=== PATIENT | female | born 1960 | race Caucasian/White ===

== ENCOUNTER 2018-12-10 04:51 | Inpatient (IN) ==
--- NOTE | 2018-11-12 15:36 | PAT Medication Instructions ---
Medication Instructions Date of Service November 12, 2018 Home Medications aspirin 81 mg PO DAILY PRN biotin 10,000 mcg PO QAM levothyroxine 100 mcg PO QAM multivitamin 1 cap PO QAM naproxen [Naprosyn] 500 - 1,000 mg PO BID PRN vitamin B complex 1 cap PO QAM Continue as directed aspirin 81 mg PO DAILY PRN (if needed) ASK your surgeon for instructions naproxen [Naprosyn] 500 - 1,000 mg PO BID PRN STOP taking 2 weeks before surgery (or as soon as possible if surgery is within 2 weeks) biotin 10,000 mcg PO QAM DO NOT take the morning of surgery multivitamin 1 cap PO QAM vitamin B complex 1 cap PO QAM Take morning of surgery With a small sip of water, OTHERWISE NOTHING TO EAT OR DRINK AFTER MIDNIGHT: levothyroxine 100 mcg PO QAM Other Notes If you have any questions please call us at [phone] or [phone] or [phone] or [phone]
--- NOTE | 2018-11-15 09:17 | Anesthesiology Consultation ---
Date of Service November 15, 2018 Assessment & Plan (1) Encounter for pre-operative examination: Chart Review Chart Review: Acceptable Risk for Surgery and Patient seen in Pre Admission Testing Teaching & Discussion Pre-Anesthesia Teaching/Discussion Notes: Instructed NPO after midnight before surgery,except medications with 15 cc of water. Medication instructions provided according to the PAT guidelines. History Surgery Operation Date: 12/10/18 10:40 Proposed Procedures p Left Total Hip Replacement - Truman Rizzo MD Height/Weight Height: 5 ft 5 in Weight: 66.2 kg Allergies Allergy/AdvReac Type Severity Reaction Status Date / Time adhesive Allergy Mild REDNESS, Verified 11/15/18 09:48 SORENESS Medications Home Medications Medication Instructions Recorded Confirmed Last Taken aspirin 81 mg PO DAILY PRN 11/02/18 11/02/18 Unknown biotin 10,000 mcg PO QAM 11/02/18 11/02/18 Unknown levothyroxine 100 mcg PO QAM 11/02/18 11/02/18 Unknown multivitamin 1 cap PO QAM 11/02/18 11/02/18 Unknown naproxen [Naprosyn] 500 - 1,000 mg PO BID PRN 11/02/18 11/02/18 Unknown vitamin B complex 1 cap PO QAM 11/02/18 11/02/18 Unknown Past Medical History Medical History Hypothyroidism Osteoarthritis Racing heart beat CHRONIC X 8+ YEARS S/P "NEGATIVE" CARDIAC WORKUP INCLUDING MULTIPLE 2 WEEK HOLTER MONITORS PER PATIENT Exercise / Class Metabolic Activity II 4-5 Yardwork/Stairs/Walk up hill Past Surgical History Surgical History History of appendectomy Hx of exploratory laparotomy RESIDUAL APPENDIX TISSUE REMOVAL YEARS AFTER INITIAL APPE + MELO Past Anesthesia History No Hx of Anesthesia Complications and No Family Hx of Anesthesia Complications History of PONV No Hx of PONV and Hx of Motion Sickness Social History Smoking Status: Former smoker Do You Dip or Chew Tobacco: No Smoking End Date: QUIT 2003 Hx Alcohol Use: No Hx Substance Use: No substance use type: does not use Review of Systems URI symptoms including sinus pressure (per patient, she will notify PCP/surgeon if symptoms persistent/worsening. Patient denies chest pain, shortness of breath, dyspnea on exertion, reflux, cough, wheezing. Physical Exam Vital Signs VITALS BP 145/75 P 61 TEMP 97.9 SP02 97%RA RESP 16 PHYSICAL Full neck and c-spine range of motion. Full TMJ range of motion. TMD 2.5 finger breaths Mallampati Score 3 Dentition: poor dentition, several rotted teeth, upper partial, patient denies any loose teeth Lungs: clear throughout to auscultation Cardiac: regular rate and rhythm, no murmurs noted Spine: normal Carotid arteries: negative bruit Extremities: no edema Testing Laboratory Results 11/15/18 10:03 11/15/18 10:03 PT 10.2 Seconds (9.0-12.0) 11/15/18 10:03 INR 1.0 (0.9-1.1) 11/15/18 10:03 APTT 28.8 Seconds (21.0-31.0) 11/15/18 10:03 Blood Type O Positive 11/15/18 10:03 Antibody Screen NEGATIVE 11/15/18 10:03 Electrocardiogram Date: 11/15/18 SB at 52bpm. PRWP consider anterior [place] vs. lead placement vs. LVH. Chest X-Ray Date: 11/15/18 Findings: + NAD
--- NOTE | 2018-11-15 10:34 | XRay Report ---
XR chest Pre-admission PA/Lat CLINICAL HISTORY: 58 years-old Female presenting with preoperative evaluation. TECHNIQUE: PA and lateral views of the chest were obtained. COMPARISON: None. FINDINGS: Cardiomediastinal silhouette normal. Lungs and pleural spaces clear. Osseous structures normal. Upper abdomen normal. IMPRESSION: 1. No acute cardiopulmonary disease. Electronically signed by: Willian Muñoz M.D. 11/15/2018 10:33 AM
[2018-11-15 10:44] LABS: Basophils # (auto) 0.01 K/uL (0-0.2); Basophils % (auto) 0.1 %; Eosinophils # (auto) 0.08 K/uL (0-0.5); Hematocrit (blood only) 39.2 % (37-47); Hemoglobin 13.3 g/dL (12.0-16.0); Immature Granulocytes # (auto) 0.02 K/uL (0.00-0.02); Immature Granulocytes % (auto) 0.2 %; Lymphocytes # (auto) 2.43 K/uL (1.2-3.4); Lymphocytes % (auto) 29.4 %; Mean Corpuscular Hgb Conc 33.9 g/dL (32-36); Mean Corpuscular Volume 89.5 fL (80-100); Monocytes # (auto) 0.54 K/uL (0.11-0.59); Monocytes % (auto) 6.5 %; Neutrophils # (auto) 5.18 K/uL (1.4-6.5); Neutrophils % (auto) 62.8 %; Platelet Count 309 K/uL (130-400); RDW Coefficient of Variation 13.3 % (11.5-14.5); RDW Standard Deviation 43.9 fL (36.4-46.3); Red Blood Count 4.38 M/uL (4.2-5.4); White Blood Count 8.26 K/uL (4.8-10.8)
[2018-11-15 10:55] LABS: BUN Creatinine Ratio 32.1 (10-20); Calcium 9.1 mg/dl (8.5-10.1); Creatinine Clr Calc Pharmacy 100.3 ml/min; Est GFR (African American) 119.8; Est GFR (Non-African American) 103.4; Potassium 3.9 mmol/L (3.5-5.1)
[2018-11-15 11:03] LABS: Partial Thromboplastin Ratio 1.1; Partial Thromboplastin Time 28.8 Seconds (21.0-31.0); Prothrombin Time 10.2 Seconds (9.0-12.0)
--- NOTE | 2018-12-03 21:06 | History and Physical Report ---
DATE OF ADMISSION: 12/10/2018 CHIEF COMPLAINT: Left hip pain. HISTORY OF PRESENT ILLNESS: The patient is a 58-year-old white female who has had a several year history of gradually increasing left hip pain and discomfort. It started several years ago. No known trauma. She used to be pretty active but this hip pain has really gotten to the point where it really is limiting her activity. She describes groin and thigh pain. She cannot walk any more than a couple blocks. She has difficulty putting her shoes and socks on. She has been through a bunch of different oral medicines without much relief. She would like to proceed with definitive treatment/hip replacement. PAST MEDICAL HISTORY: Significant for: 1. Emphysema/COPD. 2. Hypothyroidism. PAST SURGICAL HISTORY: Includes: 1. Appendectomy. 2. Exploratory surgery for adhesions. ALLERGIES: ADHESIVES. CURRENT MEDICINES: Include: 1. Levothyroxine 100 mcg a day. 2. Naproxen 500 mg twice a day. 3. Biotin. 4. Vitamin D. 5. Centrum Silver. FAMILY HISTORY: Noncontributory. SOCIAL HISTORY: A 58-year-old white female. Lives in [place]. She is . REVIEW OF HISTORY: Negative for diabetes, neurologic problems, vascular problems, bleeding disorders. No chest pain or shortness of breath. No history of DVT or PE. PHYSICAL EXAMINATION: GENERAL: Reveals a pleasant middle-aged female, looks to be in reasonably good health. HEENT: Benign. NECK: Supple. No lymphadenopathy. LUNGS: Clear to auscultation. HEART: Regular rate and rhythm. ABDOMEN: Soft, nontender, nondistended. EXTREMITIES: Grossly neurovascularly intact except as follows: Examination of left hip reveals the patient walks with antalgic gait. Clinically, her leg lengths appear pretty equal. She does have limited hip motion, internally rotates to about neutral. Her pelvis rocks with internal rotation. External rotation is at 30 degrees. No knee effusion. She is neurologically intact. X-RAYS: X-rays of the left hip were reviewed. She has advanced left hip DJD. She has complete loss of her superior joint space. She has osteophytes around the femoral head and acetabulum. Fairly large medial osteophyte. ASSESSMENT: A 58-year-old white female with a several year history of increasing left hip pain and discomfort consistent with advanced degenerative joint disease. She has failed conservative treatment and would like to have her left hip fixed. PLAN: We are going to take her to the operating room and do a left total hip replacement. The risks and benefits of this procedure were explained to the patient including but not limited to DVT, PE, , infection, neurological injury, vascular injury, bleeding problem, pain, limited range of motion, stiffness, failure to relieve her symptoms, incomplete relief of symptoms, need for further surgery in future, fracture, leg length inequality, nerve palsy, need for blood transfusion, etc. The patient understands and desires to proceed. We did talk her about stopping her Naprosyn 10 days preop. She is planning to be discharged home and do outpatient therapy.
[2018-12-10] MEDS ORDERED: FAMOTIDINE 20 MG TAB PO SCH (06:00)
[2018-12-10] MEDS ORDERED: GABAPENTIN 600 MG DOSE PO SCH (06:00)
[2018-12-10] MEDS ORDERED: CEFAZOLIN 2000MG 2,000 MG/15 ML SYR IV SCH (06:00)
[2018-12-10] MEDS ORDERED: METOCLOPRAMIDE HCL 10 MG TABLET PO SCH (06:00)
[2018-12-10] MEDS ORDERED: ACETAMINOPHEN 500 MG TAB PO SCH (06:00)
[2018-12-10] MEDS ORDERED: TRANEXAMIC ACID 1,000 MG **IV Pre-op IV SCH (06:00)
[2018-12-10] MEDS ORDERED: LR 60ML/HR IV SCH (06:00)
[2018-12-10] MEDS ORDERED: LR 500ML BOLUS, THEN 15ML/HR IV SCH (06:00)
[2018-12-10] MEDS ORDERED: SCOPOLAMINE 1.5 MG TDSY TD SCH (06:00)
[2018-12-10] MEDS ORDERED: TRANEXAMIC ACID 1,000 MG **IV Intra-op IV SCH (06:30)
[2018-12-10] MEDS ORDERED: BUPIVACAINE/EPINEPHRINE 0.5% MPF 1:200,000 30 ML VIAL ONE (06:38)
[2018-12-10] MEDS ORDERED: BACITRACIN INJ 50,000 UNIT VIAL ONE (06:38)
--- NOTE | 2018-12-10 06:49 | History & Physical Bridge Note ---
Date of Service December 10, 2018 History & Physical Bridge Note I have examined the patient, reviewed the History & Physical and in the interval since the performance of the History & Physical I have noted the following changes of clinical significance: no changes noted
[2018-12-10] MEDS ORDERED: DiphenhydrAMINE HCL 50 MG/ML VIAL IV PRN (08:01)
[2018-12-10] MEDS ORDERED: NALOXONE HCL 1 MG in SODIUM CHLORIDE 0.9% 1000ML 1,000 ML IV PRN (08:01)
[2018-12-10] MEDS ORDERED: PROMETHAZINE HCL 25 MG in SODIUM CHLORIDE 0.9% 50 ML IV PRN (08:01)
[2018-12-10] MEDS ORDERED: MoRPHine SULFATE PF 1 MG/ML 10 ML AMP/VIAL INT SPINAL ONE (08:01)
[2018-12-10] MEDS ORDERED: NALBUPHINE HCL INJ 10 MG/ML AMP IV PRN (08:01)
[2018-12-10] MEDS ORDERED: LACTATED RINGER'S 500 ML IV PRN (08:01)
[2018-12-10] MEDS ORDERED: NALOXONE HCL 0.08 MG in SYRINGE 1.8 ML IV PRN (08:01)
[2018-12-10] MEDS ORDERED: ePHEDrine sulfate 50 MG/ML AMP IV PRN (08:01)
[2018-12-10] MEDS ORDERED: NALOXONE HCL 0.4 MG/1 ML VIAL/CARP IV PRN ×2 (08:01→09:45)
[2018-12-10] MEDS ORDERED: ONDANSETRON INJ 2 MG/ML 2 ML VIAL IV PRN ×2 (08:01→09:45)
[2018-12-10] MEDS ORDERED: SODIUM CHLORIDE 0.9% 1000ML 1,000 ML IV SCH (08:15)
[2018-12-10] MEDS ORDERED: DC INTRASPINAL MORPHINE SCH (08:15)
[2018-12-10] MEDS ORDERED: NO NARCOTICS OR SEDATIVES SCH (08:15)
--- NOTE | 2018-12-10 08:30 | Post Operative Brief Note ---
Immediate Post Op Note v1 Date of Surgery December 10, 2018 Pre & Post Diagnosis Operation Date: 12/10/18 07:00 Pre-Op Diagnosis: Left Hip Degenerative Joint Disease Post-Op Diagnosis: Left Hip Degenerative Joint Disease Procedure Operation Date: 12/10/18 07:00 Actual Procedures p Left Total Hip Replacement(Left) - Truman Rizzo MD Surgeon Truman Rizzo MD Dinkey Driver Sarah, PAC Estimated Blood Loss 200 Findings Consistent with Post-Op Diagnosis Fluids 1300 cc Specimens Left Femoral Head Drains Piedra Catheter Anesthesia Type Spinal MAC Complications none Disposition Accompanied Patient To Recovery: Yes Disposition: Recovery Room
--- NOTE | 2018-12-10 09:11 | XRay Report ---
SINGLE VIEW PELVIS; SINGLE VIEW LEFT HIP CLINICAL HISTORY: Postoperative examination. FINDINGS: An AP portable view of the hips and pelvis with a crosstable lateral portable view of the l eft hip are obtained. A bipolar left hip arthroplasty is in near-anatomic alignment. 2 cortical lag s crews transfix the acetabular cup. No acute fracture is identified. There are expected postoperative changes overlying the left hip including skin clips, subcutaneous gas, and soft tissue swelling. Join t space of the right hip is maintained. A calcified fibroid and phleboliths are noted in the pelvis. A Piedra catheter is in place. IMPRESSION: Expected postoperative findings status post left hip arthroplasty. No acute fracture is s een. Electronically signed by: Jos Eli M.D. 12/10/2018 9:09 AM
--- NOTE | 2018-12-10 09:35 | Anesthesiology Progress Note ---
Date of Service December 10, 2018 Anesthesia Post Procedure Vital Signs Vital Signs: Temp Pulse Pulse Resp BP Pulse Ox 12/10/18 09:15 57 L 14 103/67 94 12/10/18 09:05 59 L 14 106/56 L 94 12/10/18 08:55 62 16 111/67 95 12/10/18 08:45 58 L 16 122/68 100 12/10/18 08:35 36.4 C L 63 16 121/71 100 12/10/18 05:35 36.6 C 65 20 143/92 H 99 Transfer of Care Handoff Completed per policy Notes Mental Status: alert / awake / arousable Patient Amnestic to Procedure: Yes Nausea / Vomiting: adequately controlled Pain: adequately controlled Airway Patency, RR, SpO2: stable & adequate BP & HR: stable & adequate Hydration State: stable & adequate Neuraxial Anesthesia: was administered and sensory block is resolving Anesthetic Complications: no major complications apparent
[2018-12-10] MEDS ORDERED: MAGNESIUM HYDROXIDE SUSP 30 ML UDC PO PRN (09:45)
[2018-12-10] MEDS ORDERED: ALUMINUM/MAGNESIUM SUSP 30 ML UDC PO PRN (09:45)
[2018-12-10] MEDS ORDERED: METOCLOPRAMIDE HCL INJ 5 MG/ML 2 ML VIAL IV PRN (09:45)
[2018-12-10] MEDS ORDERED: HYDROmorphone INJ 0.5 MG/0.5 ML SYR IV PRN (09:45)
[2018-12-10] MEDS ORDERED: NON-FORMULARY MEDICATION (Multivitamin 1 CAP) PO SCH (09:45)
[2018-12-10] MEDS ORDERED: NON-FORMULARY MEDICATION (Biotin 10,000 MCG) PO SCH (09:45)
[2018-12-10] MEDS ORDERED: BISACODYL 10 MG SUPP PR PRN (09:45)
[2018-12-10] MEDS ORDERED: LEVOTHYROXINE SODIUM 100 MCG TABLET PO SCH (11:00)
[2018-12-10] MEDS: DOCUSATE SODIUM 100 MG CAP PO SCH ×2 (12:19→21:37)
[2018-12-10] MEDS: MULTIVITAMIN TAB PO SCH (12:19)
[2018-12-10] MEDS: SODIUM CHLORIDE 0.9% 1000ML 1,000 ML IV SCH ×2 (12:20→21:39)
[2018-12-10] MEDS: KETOROLAC 30 MG/ML VIAL IV SCH ×3 (12:22→23:20)
[2018-12-10] MEDS: ASPIRIN 81 MG ECTAB PO SCH ×2 (12:22→21:37)
[2018-12-10] MEDS: VITAMIN B COMPLEX TAB PO SCH (12:22)
[2018-12-10] MEDS ORDERED: TRANEXAMIC ACID 1,000 MG in 0.9 % SODIUM CHLORIDE 100 ML IV SCH (14:30)
[2018-12-10] MEDS: ACETAMINOPHEN 500 MG TAB PO SCH ×2 (15:22→21:37)
[2018-12-10] MEDS: CEFAZOLIN 1000MG 1,000 MG/7.5 ML SYR IV SCH ×2 (15:26→23:20)
[2018-12-10] MEDS: FERROUS GLUCONATE 324 MG TAB PO SCH (17:40)
[2018-12-10] MEDS: ASCORBIC ACID 500 MG TAB PO SCH (17:40)
[2018-12-10] MEDS: CHECK SCOPOLAMINE PATCH PLACEMENT SCH ×2 (17:41→23:21)
--- NOTE | 2018-12-10 19:17 | Progress Note ---
DATE: 12/10/2018 SUBJECTIVE: This patient is a 58-year-old female who is postoperative from a left hip replacement. She is doing well. Not having any pain yet. No chest pain or shortness of breath. Not feeling dizzy or lightheaded. OBJECTIVE: VITAL SIGNS: Temperature 36.7. Vital signs stable. PHYSICAL EXAMINATION: GENERAL: Shows a pleasant, middle-aged female. She is sitting up in bed and eating dinner. She looks comfortable. She is talking to her . LUNGS: Clear to auscultation. HEART: Regular rate and rhythm. ABDOMEN: Soft, nontender and nondistended. EXTREMITIES: Grossly neurovascularly intact except as follows. Examination of the left hip and leg reveals her leg lengths to be equal. Dressing is clean, dry and intact. Thigh is soft and supple. She is neurologically intact. She can dorsiflex and plantarflex her foot appropriately. X-RAYS: X-rays of the left hip from recovery room reviewed. It shows left uncemented total hip arthroplasty. Components looked to be in good position. No signs of problems. ASSESSMENT: This patient is a 58-year-old female postoperative from a left hip replacement, doing well. Her pain is controlled. Hip is located. She is neurologically intact. PLAN: 1. Deep venous thrombosis prophylaxis including thigh-high thromboembolic deterrent stockings, sequential compression devices and aspirin twice a day. 2. Physical therapy/occupational therapy. Weight bear as tolerated. Left total hip protocol. 3. Pain control, doing well with current pain regimen. 4. I.V. antibiotics x24 hours. 5. Disposition: She is planning to be discharged home with some home health once adequately recovered.
--- NOTE | 2018-12-10 20:34 | Operative Report ---
DATE OF OPERATION: 12/10/2018 SURGEON: Truman Rizzo MD KNOTTER HAND: EMIGDIO August PREOPERATIVE DIAGNOSIS: Left hip degenerative joint disease. POSTOPERATIVE DIAGNOSIS: Left hip degenerative joint disease. PROCEDURE PERFORMED: Left uncemented ceramic on highly cross-linked polyethylene total hip arthroplasty. COMPLICATIONS: None. ESTIMATED BLOOD LOSS: 200 mL. FLUID REPLACEMENT: 1300 mL crystalloid fluid replacement. ANESTHESIA: Spinal. DRAINS: None. SPECIMENS: Left femoral head sent for pathology. OPERATIVE INDICATIONS: The patient is a 58-year-old previously active female who has developed left hip pain and discomfort that has gotten gradually worse over the past several years. It is really affecting her activity level. She failed all conservative care. X-rays revealed advanced left hip DJD. She elected to proceed with operative treatment. OPERATIVE FINDINGS: Operative findings revealed advanced left hip DJD. She had extensive grade 4 changes of the femoral head and acetabulum. She had a large medial osteophyte and some anterior acetabular osteophytes. Moderate to large hip joint effusion. Some moderate synovitis. OPERATIVE IMPLANTS: Operative implants consisted of: 1. Biomet G7 size 50 mm acetabular shell. 2. Deering hole eliminator. 3. A 6.5 cancellous acetabular screws, 1 at 35 mm length and 1 at 25 mm length. 4. Highly cross-linked polyethylene liner with 50 mm outer diameter and 28 mm inner diameter. 5. DePuy Corail size 11 KLA femoral stem. 6. A +5/32 mm ceramic articular ball. OPERATIVE PROCEDURE: The patient was taken to the operating room, identified and placed on the operating table in supine position. All contact areas were appropriately padded. I.V. antibiotics were provided by anesthesia team. A spinal anesthetic had been implemented in the holding area. Piedra catheter was placed in sterile fashion. The patient was then placed in the right lateral decubitus position. An axillary roll was placed. Stlberg hip positioner was used for positioning. The left hip was prepped and draped in usual sterile fashion. A posterolateral approach to the left hip was then performed through a curvilinear incision centered over the greater trochanter. Sharp dissection was carried through subcutaneous tissue down to the level of the IT band and gluteal fascia. The IT band and gluteal fascia was incised longitudinally in line with skin incision. The underlying greater trochanteric bursa was excised. The piriformis and external rotators were tagged and taken off the posterior aspect of the hip joint capsule. Great care was taken throughout the procedure to protect the sciatic nerve at all times. Posterior capsulotomy was then performed leaving a large flap for later repair. The hip was then internally rotated and dislocated. Femoral neck osteotomy cut was made with final cut approximately 1 cm above the lesser trochanter. Femoral head was removed and sent for pathology. The femur was retracted anteriorly. Attention was then drawn to the acetabulum. The acetabulum labrum was excised. The pulvinar fat was excised. Sequential reaming of the acetabulum was then performed beginning with a size 43 and progressing up to 49. A 50 mm Biomet G7 acetabular shell was then placed in about 40 degrees of lateral opening and 20 degrees of anteversion. It was fixed with two 6.5 cancellous acetabular screws. Some anterior osteophytes removed. A trial liner was placed. Attention was then drawn to the femur. The proximal femur was entered with a cookie cutter followed by canal finder. I then broached beginning with a size 8 and progressing up to 11. We got pretty good fit at 11. I did not think I could get 12 in without damaging the proximal femur. A calcar reamer was used to smoothen off the calcar. I then trialed the hip and +5 articular ball provided full stability and full extension and external rotation and flexion to 90 degrees and internal rotation to 50+ degrees. Leg lengths appeared appropriate and soft tissue tension appeared appropriate. We elected to place these implants. All trial implants were removed. An apex hole eliminator was placed. Highly cross-linked polyethylene liner was placed. A DePuy Corail size 11 KLA femoral stem was impacted in position. A +5/32 mm ceramic articular ball was placed. Hip was located and once again found to be stable. Attention was then drawn toward closing. The wound was irrigated with copious amounts of pulsatile lavage solution. I did inject locally with 60 mL of 0.5% Marcaine with epinephrine. The posterior capsule and external rotators were then repaired through drill holes in the posterior trochanter with #2 Ti-Cron suture. The IT band and gluteal fascia were then closed with #1 PDS suture in a running fashion. Subcutaneous tissue was then closed with 2 layers, the deep layer #1 Vicryl suture and subcutaneous tissues with 2-0 Dexon suture in a buried interrupted fashion. Skin was closed with skin beto. Leg was then cleaned and dried and a sterile dressing of Xeroform, 4 x 4, sterile ABD pad and foam tape was applied. The patient was then transferred to the recovery room in a stable condition. The patient tolerated the procedure well with no complication. All needle and sponge counts were correct at the end of the operation. I attest to the content of the Intraoperative Record and any orders documented therein. Any exception s are noted below.
[2018-12-10] MEDS: SENNA 8.6 MG TAB PO SCH (21:37)
[2018-12-11] MEDS: KETOROLAC 30 MG/ML VIAL IV SCH ×4 (05:58→21:58)
[2018-12-11] MEDS: SODIUM CHLORIDE 0.9% 1000ML 1,000 ML IV SCH (05:58)
[2018-12-11] MEDS: LEVOTHYROXINE SODIUM 100 MCG TABLET PO SCH (05:58)
[2018-12-11] MEDS: ACETAMINOPHEN 500 MG TAB PO SCH ×3 (05:58→21:07)
[2018-12-11 06:26] LABS: Basophils # (auto) 0.01 K/uL (0-0.2); Basophils % (auto) 0.1 %; Eosinophils # (auto) 0.05 K/uL (0-0.5); Eosinophils % (auto) 0.6 %; Hematocrit (blood only) 33.2 % (37-47); Immature Granulocytes # (auto) 0.02 K/uL (0.00-0.02); Immature Granulocytes % (auto) 0.2 %; Lymphocytes # (auto) 1.54 K/uL (1.2-3.4); Lymphocytes % (auto) 19.1 %; Mean Corpuscular Hgb Conc 33.1 g/dL (32-36); Mean Corpuscular Volume 91.5 fL (80-100); Mean Platelet Volume 9.8 fL (7.4-10.4); Monocytes # (auto) 0.67 K/uL (0.11-0.59); Monocytes % (auto) 8.3 %; Neutrophils # (auto) 5.79 K/uL (1.4-6.5); Neutrophils % (auto) 71.7 %; Platelet Count 195 K/uL (130-400); RDW Coefficient of Variation 13.2 % (11.5-14.5); RDW Standard Deviation 44.3 fL (36.4-46.3); Red Blood Count 3.63 M/uL (4.2-5.4); White Blood Count 8.08 K/uL (4.8-10.8)
[2018-12-11 07:04] LABS: BUN Creatinine Ratio 24.4 (10-20); Calcium 7.9 mg/dl (8.5-10.1); Creatinine Clr Calc Pharmacy 119.5 ml/min; Est GFR (African American) 126.2; Est GFR (Non-African American) 108.9; Potassium 3.8 mmol/L (3.5-5.1)
[2018-12-11] MEDS: ASCORBIC ACID 500 MG TAB PO SCH ×2 (08:37→16:54)
[2018-12-11] MEDS: ASPIRIN 81 MG ECTAB PO SCH ×2 (08:37→20:40)
[2018-12-11] MEDS: DOCUSATE SODIUM 100 MG CAP PO SCH ×2 (08:37→20:39)
[2018-12-11] MEDS: FERROUS GLUCONATE 324 MG TAB PO SCH ×2 (08:37→16:53)
[2018-12-11] MEDS: MULTIVITAMIN TAB PO SCH (08:37)
[2018-12-11] MEDS: VITAMIN B COMPLEX TAB PO SCH (08:37)
--- NOTE | 2018-12-11 09:30 | Progress Note ---
DATE: 12/11/2018 SUBJECTIVE: A 58-year-old white female postop day 1 from left total hip replacement. She is doing pretty well. Not having any pain in bed. Pretty uncomfortable last evening when she was trying to ambulate and weightbear. No chest pain or shortness of breath. Not feeling dizzy or lightheaded. OBJECTIVE: VITAL SIGNS: Temperature 37.1. Vital signs stable. GENERAL: Physical examination shows a pleasant, middle-aged female. She is lying in bed and talking to her , looks comfortable. EXTREMITIES: Examination of the left hip reveals the leg lengths to be equal. Dressing is clean, dry and intact. Thigh is soft and supple. She is neurologically intact. LABORATORY DATA: Hemoglobin is 11.0. Hematocrit 33.2. Electrolytes are stable. ASSESSMENT: A 58-year-old white female postop day 1 from a left hip replacement, doing pretty well. Pain is controlled for the most part. Hip is located. She is neurologically intact. PLAN: 1. DVT prophylaxis including thigh-high TEDs, SCDs, and baby aspirin twice a day for the next 6 weeks. 2. PT/OT. She will weightbear as tolerated. Left total hip protocol. 3. Pain control, doing pretty well with current pain regimen. 4. Disposition: Plan to discharge to home with some home health once adequately recovered and medically stable.
--- NOTE | 2018-12-11 11:14 | Anesthesiology Progress Note ---
Date of Service December 11, 2018 Anesthesia Post Procedure Vital Signs Vital Signs: Temp Pulse Pulse Pulse Resp BP Pulse Ox 12/11/18 07:46 37.1 C 54 L 16 107/56 L 97 12/11/18 03:04 36.6 C 66 14 108/69 97 12/11/18 01:30 18 95 12/11/18 00:30 16 97 12/10/18 23:37 36.4 C L 55 L 14 98/61 L 95 12/10/18 23:30 16 96 12/10/18 22:30 16 95 12/10/18 21:30 18 95 12/10/18 20:30 16 96 12/10/18 20:11 36.8 C 62 16 99/62 L 97 12/10/18 19:37 36.6 C 52 L 16 99/61 L 92 12/10/18 19:30 16 96 12/10/18 18:16 14 95 12/10/18 17:30 16 93 12/10/18 16:17 16 96 12/10/18 15:25 14 98 12/10/18 15:12 36.7 C 57 L 16 102/64 95 12/10/18 14:30 16 95 12/10/18 13:38 12 96 12/10/18 13:36 36.9 C 73 12 100/69 96 12/10/18 12:15 36.6 C 60 12 96/61 L 93 12/10/18 11:15 36.3 C L 56 L 18 99/40 L 96 Transfer of Care Handoff Completed per policy Notes Mental Status: alert / awake / arousable and participated in evaluation Patient Amnestic to Procedure: Yes Nausea / Vomiting: adequately controlled Pain: adequately controlled Airway Patency, RR, SpO2: stable & adequate BP & HR: stable & adequate Hydration State: stable & adequate Anesthetic Complications: no major complications apparent
[2018-12-11] MEDS: TRAMADOL HCL 50 MG TABLET PO PRN (15:23)
[2018-12-11] MEDS: SENNA 8.6 MG TAB PO SCH (20:39)
[2018-12-12] MEDS: ACETAMINOPHEN 500 MG TAB PO SCH (05:58)
[2018-12-12] MEDS: KETOROLAC 30 MG/ML VIAL IV SCH (05:58)
[2018-12-12] MEDS: LEVOTHYROXINE SODIUM 100 MCG TABLET PO SCH (06:00)
[2018-12-12] MEDS: VITAMIN B COMPLEX TAB PO SCH (09:19)
[2018-12-12] MEDS: FERROUS GLUCONATE 324 MG TAB PO SCH (09:19)
[2018-12-12] MEDS: ASCORBIC ACID 500 MG TAB PO SCH (09:19)
[2018-12-12] MEDS: DOCUSATE SODIUM 100 MG CAP PO SCH (09:19)
[2018-12-12] MEDS: MULTIVITAMIN TAB PO SCH (09:19)
[2018-12-12] MEDS: ASPIRIN 81 MG ECTAB PO SCH (09:19)
[2018-12-12] MEDS: TRAMADOL HCL 50 MG TABLET PO PRN (09:20)
--- NOTE | 2018-12-12 09:34 | Progress Note ---
DATE: 12/12/2018 SUBJECTIVE: A 58-year-old female postop day #2 from a left hip replacement. She is doing pretty well. She states she is not really having much pain. No chest pain or shortness of breath. Not feeling dizzy or lightheaded. OBJECTIVE: VITAL SIGNS: Temperature 37.1. Vital signs stable. PHYSICAL EXAMINATION: GENERAL: Physical examination shows a pleasant, middle-aged female. She is sitting up at her bedside with her legs dangling over the bed and looks pretty comfortable. EXTREMITIES: Examination of the left hip reveals leg lengths to be equal. Dressing is clean, dry and intact. No significant drainage. Some mild swelling. Thigh is soft and supple. She is neurologically intact. Hip is located. ASSESSMENT: A 58-year-old female postoperative day #2 from a left hip replacement, doing pretty well. PLAN: 1. DVT prophylaxis including thigh-high TEDs, SCDs and aspirin twice a day. 2. PT/OT. Weight bear as tolerated. Left total hip protocol. 3. Pain control, doing pretty well with current pain regimen. 4. Disposition: Plan to discharge to home with some home health later today.
--- NOTE | 2018-12-15 14:52 | Discharge Summary ---
ADMITTING PHYSICIAN AND SURGEON: Truman Rizzo MD ADMITTING DIAGNOSIS: Left hip degenerative joint disease. SURGERY PERFORMED: Left total hip arthroplasty. SECONDARY DIAGNOSES: Emphysema, chronic obstructive pulmonary disease, hypothyroidism. CONSULTS: None obtained. HISTORY AND PHYSICAL EXAMINATION: Well documented in the patient's chart. HOSPITAL COURSE: The patient was admitted on 12/10/2018, underwent a total hip arthroplasty, tolerated the procedure well. There were no complications. She was transferred to the PACU postoperatively and later to the orthopedic floor for further care. She was given Ancef for antibiotic prophylaxis, LINDA stockings, SCDs and aspirin for DVT prophylaxis. Hemoglobin, hematocrit and vital signs were monitored during her hospital stay and remained stable. She did not require any blood transfusions. There were no complications. By postoperative day 2, she was tolerating a regular diet, pain was controlled with oral pain medicine. She was participating in physical therapy. On postop day 2, she was discharged home, set up with home health services. She was given printed discharge instructions as well as new prescriptions for extra-strength Tylenol, aspirin and tramadol. Continue her home medicines. Continue physical therapy, weightbearing as tolerated, LINDA stockings, total hip precautions. Follow up approximately 2 weeks postop or sooner if there are any problems or concerns.
== END 2018-12-12 10:00 | disposition home health service (06) | DRG 470 ==
LOC: ASU 04:51 → 3E 08:33